=== PATIENT | male | born 1950 | race Caucasian/White ===

== ENCOUNTER 2020-07-17 10:54 | Outpatient (CLI) | payer MEDICARE ==
--- NOTE | 2020-07-17 13:02 | CT ---
CT CHEST WITHOUT CONTRAST: Date: 07/17/2020 TECHNIQUE: Axial tomograms obtained through the chest without contrast following a low dose screening protocol. INDICATION: Lung screening. History of nicotine use. Long history of smoking. FINDINGS: Small calcified nodule in the right upper lobe anteriorly measuring in the 4.0 mm range. Tiny nodule in the right upper lobe posteriorly seen on image 43 in the right apical region measuring in the 3.0 mm range. Tiny 3.0 mm pleural based nodule in the peripheral right mid lung, right middle lobe, seen axial imag e 107. Another pleural based nodular density in the peripheral right middle lobe seen on axial image 115 jourdan suring in the 2-3 mm range. Mild stranding in the posterior right lower lobe. Left lung appears clear with no evidence of mass or nodule. Mediastinum unremarkable with nonspecific lymph nodes. Upper abdomen unremarkable. Osseous structures unremarkable. Degenerative changes in the thoracic spine are noted. IMPRESSION: Lung-RADS 2. Recommend annual low dose screening chest CT. POS: MICHELINE
== END 2020-07-17 10:55 | disposition home or self-care (01) ==
LOC: BICCT 10:54
PROVIDERS: ATTEND Family Medicine
DX: Z12.2 Encounter for screening for malignant neoplasm of respiratory organs (principal); Z87.891 Personal history of nicotine dependence
CPT/HCPCS: G0297

== ENCOUNTER 2023-07-13 06:13 | Day surgery (SDC) | payer MEDICARE ==
[2023-07-12 11:27] VITALS: BMI 23.7
[~2023-07-13 06:13] MED LIST: EPINEPHrine 0.3 MG in Ophthalmic Irrigation Solution 500 ML IRR SCH
[2023-07-13] MEDS ORDERED: PROPOFOL 20 ML ONE (08:09)
[2023-07-13] MEDS ORDERED: fentaNYL 50 mcg/mL 1 mL Vial ONE (08:09)
[2023-07-13] MEDS ORDERED: Midazolam HCl 2 mg/2 ml Vial ONE (08:09)
[2023-07-13] MEDS ORDERED: Lidocaine 4% PF 5 ML AMP ONE (08:44)
[2023-07-13] MEDS ORDERED: Bupivacaine 0.75% 10 ML VIAL ONE (08:44)
[2023-07-13] MEDS ORDERED: CEFAZOLIN 1 GM VIAL ONE (08:44)
[2023-07-13] MEDS ORDERED: Lidocaine 1% PF 5 ML VIAL ONE (08:44)
[2023-07-13] MEDS ORDERED: Maxitrol 0.1% Opth Oint 3.5 GM TUBE ONE (08:44)
[2023-07-13] MEDS ORDERED: Triamcinolone 40 MG/ML VIAL ONE (08:44)
== END 2023-07-13 10:25 | disposition home or self-care (01) ==
LOC: SDC 06:13
PROVIDERS: ATTEND Ophthalmology Retina Specialist
PROC: 08T43ZZ Resection of Right Vitreous, Percutaneous Approach (ICD-10-PCS; principal; 2023-07-13)
DX: H35.341 Macular cyst, hole, or pseudohole, right eye (principal)
CPT/HCPCS: 67042; J3010; 67025; J0171; J2250; J2704